=== PATIENT | female | born 1995 | race Caucasian/White ===

== ENCOUNTER 2020-11-24 14:11 | Emergency (ER) | payer OTHER ==
[2020-11-24 14:57] VITALS: BP 112/70; PULSE 66; TEMP 98.3; BMI 22.2
== END 2020-11-24 15:52 | disposition home or self-care (01) ==
LOC: JERFT 14:11
DX: S02.2XXA Fracture of nasal bones, initial encounter for closed fracture (principal)
CPT/HCPCS: 70160-TC-FY; 99283-25